=== PATIENT | male | born 1950 | race American Indian/Alaskan Native ===

== ENCOUNTER 2019-01-19 05:06 | Inpatient (IN) ==
[2019-01-13 19:05] LABS: Appearance,Urine CLEAR; Bacteria,Urine 0 /hpf (0); Bilirubin,Urine NEG (NEG); Color,Urine YELLOW; Culture Indicated,Urine NO; Glucose,Urine (UA) NEGATIVE (NEG); Ketones,Urine NEG (NEG); Leukocyte Esterase,Urine NEG /uL (NEG); Mucus,Urine FEW /hpf (0); Nitrate,Urine NEG (NEG); Protein,Urine NEG (NEG); Urine Blood NEG mg/dL (<0.03); Urine RBC 1 /hpf (0-1); Urine Squamous Epithelial Cell 0 /hpf (0-4); Urine WBC 1 /hpf (0-4); Urobilinogen,Urine NEG (NEG)
[2019-01-13 19:54] LABS: Basophils # (Auto) 0.1 K/mcL (0.0-0.3); Basophils % (Auto) 0.8 % (0.0-2.0); Eosinophils # (Auto) 0.5 K/mcL (0.0-0.7); Granulocytes % (Auto) 47.4 % (38.0-78.0); Hematocrit 43.6 % (41.0-55.0); Hemoglobin 14.8 g/dL (13.5-16.5); Lymphocytes # (Auto) 2.2 K/mcL (1.5-4.8); Lymphocytes % (Auto) 33.5 % (15.5-49.0); Mean Cell Volume 90.4 fL (80.0-100.0); Mean Corpuscular HGB Conc 33.9 g/dL (31.0-36.0); Monocytes # (Auto) 0.7 K/mcL (0.1-0.9); Monocytes % (Auto) 10.3 % (1.0-12.0); Platelet Count 162 K/mcL (140-440); RBC 4.82 M/mcL (4.50-5.90); Red Cell Distribution Width 13.4 % (11.5-14.5); WBC 6.7 K/mcL (4.5-11.0)
[2019-01-13 20:04] LABS: Blood Urea Nitrogen 18 mg/dl (8-23); Calcium 9.6 mg/dl (8.6-10.4); Carbon Dioxide 27 mmol/L (22-30); Chloride 101 mmol/L (96-108); Glomerular Filtration Rate 93; Glucose 106 mg/dL (70-105)
[2019-01-13 20:31] LABS: Estimated Average Glucose(eAG) 192 mg/dL; Hemoglobin A1C 8.3 % HGB (4.0-6.0)
[~2019-01-19 05:06] MED LIST: IPRATROPIUM/ALBUTEROL 3 ML AMPUL.NEB NEB PRN; SCOPOLAMINE 1 PATCH PATCH TOPICAL PRN
[2019-01-19 05:26] LABS: POC Pro Time 11.5 sec (11.9-14.5)
[2019-01-19] MEDS ORDERED: 0.9 % SODIUM CHLORIDE 9 ML, KETOROLAC 30 MG, ROPIVACAINE HCL/PF 49.5 ML, EPINEPHrine 0.... IJ SCH (06:00)
[2019-01-19] MEDS ORDERED: CELECOXIB 200 MG CAPSULE PO SCH (06:00)
[2019-01-19] MEDS ORDERED: oxyCODONE 10 MG TAB.ER.12H PO SCH (06:00)
[2019-01-19] MEDS ORDERED: PREGABALIN 75 MG CAPSULE PO SCH (06:00)
[2019-01-19] MEDS ORDERED: ceFAZolin 2 GM in DEXTROSE 5% IN WATER 50 ML IV SCH (06:00)
[2019-01-19] MEDS ORDERED: TRANEXAMIC ACID 1,000 MG/10 ML VIAL IV ONE (07:50)
[2019-01-19] MEDS ORDERED: PROPOFOL 200 MG/20 ML VIAL IV ONE (07:50)
[2019-01-19] MEDS ORDERED: GLYCOPYRROLATE 0.2 MG/ML VIAL IV ONE (07:50)
[2019-01-19] MEDS ORDERED: ONDANSETRON 4 MG/2 ML VIAL IV ONE (07:50)
[2019-01-19] MEDS ORDERED: KETOROLAC 30 MG/ML VIAL IV ONE (07:50)
[2019-01-19] MEDS ORDERED: MIDAZOLAM 2 MG/2 ML VIAL IV ONE (07:50)
[2019-01-19] MEDS ORDERED: KETAMINE 100 MG/ML ML IV ONE (07:50)
[2019-01-19] MEDS ORDERED: DEXAMETHASONE 10 MG/ML VIAL IV ONE (07:50)
[2019-01-19] MEDS ORDERED: LIDOCAINE HCL/PF 100 MG/5 ML SYRINGE IV ONE (07:50)
[2019-01-19] MEDS ORDERED: PHENYLEPHRINE 10 MG/ML VIAL IV ONE (07:50)
[2019-01-19] MEDS ORDERED: fentaNYL 100 MCG/2 ML VIAL IV ONE (07:50)
[2019-01-19] MEDS ORDERED: LACTATED RINGERS 250 ML IV PRN (09:15)
[2019-01-19] MEDS ORDERED: LABETALOL 5 MG/ML ML IV PRN (09:15)
[2019-01-19] MEDS ORDERED: ACETAMINOPHEN 1,000 MG/100 ML BOTTLE IV ONE (09:15)
[2019-01-19] MEDS ORDERED: ONDANSETRON 4 MG/2 ML VIAL IV PRN ×2 (09:15→09:20)
[2019-01-19] MEDS ORDERED: fentaNYL 100 MCG/2 ML VIAL IV PRN (09:15)
[2019-01-19] MEDS ORDERED: IPRATROPIUM/ALBUTEROL 3 ML AMPUL.NEB NEB PRN (09:15)
[2019-01-19] MEDS ORDERED: FLUMAZENIL 0.1 MG/ML ML IV PRN (09:15)
[2019-01-19] MEDS ORDERED: LACTATED RINGERS 1,000 ML IV SCH (09:15)
[2019-01-19] MEDS ORDERED: METOPROLOL TARTRATE 5 MG/5 ML VIAL IV PRN (09:15)
[2019-01-19] MEDS ORDERED: BENZOCAINE/MENTHOL 1 LOZENGE PO PRN ×2 (09:15→09:20)
[2019-01-19] MEDS ORDERED: METHOCARBAMOL 1,000 MG/10 ML VIAL IV PRN (09:15)
[2019-01-19] MEDS ORDERED: NALOXONE HCL 0.4 MG/ML VIAL IV PRN (09:15)
--- NOTE | 2019-01-19 09:19 | Brief Operative Note ---
Date of procedure: 01/19/19 Pre-op diagnosis: Right knee DJD Post-op diagnosis: same Procedure: Right robotic assisted total knee arthroplasty Grafts/Implants: Yes ([place] Triathlon CR 5 femur, 5 tibia, 10mm insert, 36 patella) Anesthesia: spinal, GLMA Findings: arthritis Complications: none Surgeon: González Parrish Support Services Coordinator: Salazar Rangel Estimated blood loss (cc): 30 Specimens Removed/Pathology: none sent Condition: stable Disposition: PACU
[2019-01-19] MEDS ORDERED: BISACODYL 10 MG SUPP.RECT PR PRN (09:20)
[2019-01-19] MEDS ORDERED: HYDROmorphone 2 MG/ML VIAL IV PRN (09:20)
[2019-01-19] MEDS ORDERED: POLYETHYLENE GLYCOL 3350 17 GM PACKET PO PRN (09:20)
[2019-01-19] MEDS ORDERED: MAGNESIUM HYDROXIDE 30 ML ORAL.SUSP PO PRN (09:20)
[2019-01-19] MEDS ORDERED: FLEETS ADULT ENEMA PR PRN (09:20)
[2019-01-19] MEDS ORDERED: TRANEXAMIC ACID 1,000 MG/10 ML VIAL IV SCH (09:20)
[2019-01-19] MEDS ORDERED: Mometasone/Formoterol [Dulera 200 Mcg/5 Mcg Inhaler] INH PRN (09:23)
[2019-01-19] MEDS ORDERED: TIOTROPIUM BROMIDE 18 MCG INHALANT INH PRN (09:23)
[2019-01-19] MEDS ORDERED: DEXTROSE 50% 50 ML VIAL IV PRN (09:23)
[2019-01-19] MEDS ORDERED: DEXTROSE 31 GM ORAL.SUSP PO PRN (09:23)
[2019-01-19] MEDS ORDERED: traMADol 50 MG TABLET PO PRN (09:23)
--- NOTE | 2019-01-19 09:52 | Operative Note ---
DATE OF OPERATION: 01/19/2019 PREOPERATIVE DIAGNOSIS: Left knee osteoarthritis. POSTOPERATIVE DIAGNOSIS: Left knee osteoarthritis. PROCEDURE PERFORMED: Left robotic-assisted total knee arthroplasty placing a [place] Triathlon size 5 cruciate retaining femoral component, size 5 tibial baseplate, 10 mm X3 cruciate retaining tibial insert with a 36 mm patellar button. SURGEON: González Parrish M.D. BLACK TOP SPREADER MACHINE OPERATOR: Beau Rangel PA-C. The PA's assistance was required for the safe and efficient completion of the entire case. This provider's expertise and technical skill were required throughout the case. The PA assisted with preoperative coordination, intraoperative retraction, wound closure, dressing and splint application, as well as postoperative documentation and care coordination. ANESTHESIA: Spinal plus general. DRAINS: None. SPECIMENS: Bone cuts which were discarded. BLOOD LOSS: 50 mL. COMPLICATIONS: None. POSTOPERATIVE CONDITION: Stable. INDICATIONS FOR SURGERY: A 68-year-old male with longstanding progressive worsening left knee pain. He had a previous knee arthroscopy and partial meniscectomy. He also had noted at that time advanced osteoarthritis. He did poorly postoperatively and did not respond to injections. FINDINGS AT SURGERY: Full-thickness cartilage loss off the medial compartment. Post-implantation showed good limb alignment, stability, and patellar tracking. PROCEDURE IN DETAIL: The patient had been seen preoperatively. Informed consent had been obtained after discussion of risks and benefits of surgery. Risks including, but not limited to, bleeding, possibly requiring transfusion; infection, possibly requiring implant removal and prolonged IV antibiotics; injury to nerves, blood vessels, and other surrounding structures; anesthetic risks; incomplete or no resolution of symptoms; swelling; stiffness; pain; instability; DVT and pulmonary embolus risks; and the possibility of needing further revision joint surgery. Patient understood and wished to proceed. Correct operative site was marked in preoperative holding, and patient was taken to the operating room and general anesthesia was induced. The left lower extremity was then prepped and draped in normal sterile fashion, and a timeout was performed verifying patient name, operative site, and plan. Ioban was placed over all skin surfaces and an Esmarch was used to exsanguinate the extremity, and tourniquet was inflated to 300 mmHg. A midline incision was made with a scalpel through skin and subcutaneous tissue, then IrriSept was irrigated and a medial parapatellar arthrotomy was made, and then a subperiosteal exposure was done of the anterior medial tibia. Anterior horns of the menisci were removed, as well as retropatellar fat pad. ACL was transected. We then did a resection of the patella freehand, premeasuring thickness and then placing a cut protector after. We then placed our femoral and tibial checkpoints, and then a scalpel was used to make two stab incisions over the femur and two over the tibia and bicortical pins placed. The arrays were connected. The green probe was used to identify medial and lateral malleoli and double-checks were made with the green probe of the femoral and tibial check points. Blue probe was then used to do our mapping. A rongeur was used to remove osteophytes. We then used the spoons to check our flexion-extension gaps and made adjustments to get as close to 17 mm gaps on all four numbers as possible. Once this was completed, we then used the robotic arm to make our bone cuts. The tibia was prepared with the boss reamer and keel punch and externally rotated as bone coverage would allow. A keeled tibial trial was placed, and the femur was elevated. Curved osteotome and curet were used to remove posterior osteophytes. Femoral trial was then impacted and pinned into place. This was placed flush along the lateral cortex of the femur and then peg holes were drilled. A 10 insert trial was placed and then the knee was taken into extension. We then prepared the patella medializing maximally and sized this to a 36 patella. We then checked the patellar tracking and it was stable. We then removed trial implants. Definitive implants were opened while the joint was irrigated with IrriSept. After waiting a minute, we pulse lavaged with saline. Antibiotic cement was mixed and then the cancellous bone surfaces were dried with the CO2 gun. We then cemented the tibia, followed by the femur. Excess cement was removed, and the trial insert was placed, and the knee was taken into extension. The patella was then cemented. After excess cement was removed, we filled the joint with IrriSept. The tibial and femoral check points were removed. The extension was checked and then we removed our arrays and our pins. We injected pain cocktail in the pericapsular and subcutaneous tissues. Once cement had fully hardened, we flexed the knee up. We removed the insert trial, injected pain cocktail in the posteromedial capsule. We then opened a 10 mm X3 CR insert, and this was carefully impacted and verified to be fully seated. The knee was then placed in extension and filled with IrriSept. After a minute it was copiously pulse lavaged with saline. We then flexed the knee to 45 degrees of flexion. A #2 FiberWire [id number]-ctbbn was used around the superior quadrant of the patella, #1 Vicryl [id number] around the inferior quadrant. Running #1 Vicryl was used for patellar tendon and quad tendon. Final IrriSept irrigation was done, after a minute final pulse lavage, and then 2-0 Monocryl was used for subcutaneous and jesus for skin. Xeroform and sterile dressing were applied. Tourniquet was released. The patient was awakened, extubated, and transferred to recovery in stable condition. BJLuis Miguel:rosaura Job ID: [id number] Doc ID: [id number] González Parrish MD
--- NOTE | 2019-01-19 10:16 | XRay Report ---
CLINICAL INFORMATION: Post-op total knee COMPARISON: None. FINDINGS: Total knee prostheses is anatomically aligned. No osseous normality. Periarticular soft tissue swelling seen in the expected IMPRESSION: Negative Interpreted and Authenticated by: Idris Foy 01/19/19
[2019-01-19] MEDS: 0.9 % SODIUM CHLORIDE 1,000 ML IV SCH ×2 (11:37→22:20)
[2019-01-19] MEDS: INSULIN LISPRO 1 UNIT/0.01 ML UNIT SQ SCH ×3 (11:48→20:41)
[2019-01-19] MEDS: 0.9 % SODIUM CHLORIDE 10 ML SYRINGE IV SCH ×2 (13:05→21:17)
[2019-01-19] MEDS: ceFAZolin 1 GM VIAL IV SCH ×2 (15:47→22:46)
[2019-01-19] MEDS: metFORMIN 500 MG TABLET PO SCH (17:18)
[2019-01-19] MEDS: HYDROcodone/APAP 10/325MG TABLET PO PRN (20:41)
[2019-01-19] MEDS: ASPIRIN 81 MG TAB.CHEW PO SCH (20:41)
[2019-01-19] MEDS: DOCUSATE SODIUM 100 MG CAPSULE PO SCH (20:41)
[2019-01-19] MEDS ORDERED: SENNOSIDES 1 TABLET PO SCH (21:00)
[2019-01-20] MEDS: HYDROcodone/APAP 10/325MG TABLET PO PRN ×2 (02:07→05:38)
[2019-01-20] MEDS: 0.9 % SODIUM CHLORIDE 10 ML SYRINGE IV SCH (05:09)
[2019-01-20] MEDS: 0.9 % SODIUM CHLORIDE 1,000 ML IV SCH (05:58)
[2019-01-20] MEDS: INSULIN LISPRO 1 UNIT/0.01 ML UNIT SQ SCH ×2 (07:45→11:34)
[2019-01-20] MEDS: metFORMIN 500 MG TABLET PO SCH (07:54)
--- NOTE | 2019-01-20 08:05 | Discharge Summary ---
Providers - Providers Patient information: Note initiated : 01/20/19 at 8:02 am Service Date, if different from initiated Date: [] Patient: Usama Sims 68 y/o M admitted on 01/19/19 for Left Total Knee Arthroplasty [place]. Chief Complaint: [] Discharge date: 01/20/19 Hospitalization Discharge diagnosis: s/p total knee arthroplasty Exam - Exam Clean and dry: Yes Ortho Discharge - TKA - Patient Instructions Diet: Consistent Carbohydrate Activity: weight bearing as tolerated Total Knee Protocol: For Total Knee: Start ROM [place] with stationary bike or rocking chair. Work on gaining full extension of knee. Posterior dislocation precautions provided. Hip abductor strengthening and gait training instructions provided. Apply Cryocuff as instructed. Dressing Care: Aquacel Ag - leave on for 5 days - Follow Up Plan Follow Up Appointments: Salazar Rangel PA-C [Physician Beam Press Operator] - Disposition: Home, Self-Care Prognosis: Good Rehab Potential: Good - Orders For Discharge Prescriptions: Aspirin [Adult Low Dose Aspirin EC] 81 mg PO BID #30 tablet.dr Transmission Status: Pending to [facility] Docusate Sodium [Colace] 100 mg PO BID #60 cap Transmission Status: Pending to [facility] HYDROcodone/ACETAMINOPHEN [Hydrocodone-Acetamin 10-325 mg] 1 - 2 tab PO Q4-6HP PRN #80 tab PRN Reason: Pain Prescription Printed Additional Discharge Orders: Physical Therapy at Discharge - General Location: None Selected Walker Location: None Selected Pending Studies Resuscitation Status Full Code Diet Consistent Carbohydrate Diet Start ThuJan 19 921 Hydrocodone Bitart/Acetaminophen ([place] 10/325mg) 0 tab PO Q4HP PRN PRN Reason: PAIN LEVEL 3-6 Last Admin: 01/20/19 05:38 Dose: 1 tab Documented by: Admin: 01/20/19 02:07 Dose: 1 tab Documented by: Admin: 01/19/19 20:41 Dose: 1 tab Documented by: TYLER Aspirin (Aspirin) 81 mg PO BID [facility] Last Admin: 01/19/19 20:41 Dose: 81 mg Documented by: TYLER Diagnostic Test (Pha) (Accu-Chek) 1 each FS ACHS [facility] Last Admin: 01/20/19 07:45 Dose: 1 each Documented by: [email or web address] Admin: 01/19/19 20:40 Dose: 1 each Documented by: Admin: 01/19/19 17:08 Dose: 1 each Documented by: Admin: 01/19/19 11:40 Dose: 1 each Documented by: DEVORA Docusate Sodium (Colace) 100 mg PO BID [facility] Last Admin: 01/19/19 20:41 Dose: 100 mg Documented by: TYLER Sodium Chloride (Sodium Chloride 0.9%) 1,000 mls @ 100 mls/hr IV .Q10H [facility] Last Admin: 01/20/19 05:58 Dose: Not Given Documented by: Infusion: 01/20/19 05:09 Dose: 0 mls/hr Documented by: Admin: 01/19/19 22:20 Dose: 100 mls/hr Documented by: Infusion: 01/19/19 21:37 Dose: 100 mls/hr Documented by: Admin: 01/19/19 11:37 Dose: 100 mls/hr Documented by: DEVOAR Insulin Human Lispro (Humalog) 0 unit SQ ACHS [facility]; Protocol Last Admin: 01/20/19 07:45 Dose: 2 units Documented by: Admin: 01/19/19 20:41 Dose: 6 units Documented by: Admin: 01/19/19 17:09 Dose: 12 units Documented by: Admin: 01/19/19 11:48 Dose: 6 units Documented by: DEVORA Metformin HCl (Glucophage) 1,000 mg PO BIDCC [facility] Last Admin: 01/20/19 07:54 Dose: 1,000 mg Documented by: Admin: 01/19/19 17:18 Dose: 1,000 mg Documented by: DEVORA Senna (Senokot) 2 tab PO HS [facility] Last Admin: 01/19/19 20:41 Dose: 2 tab Documented by: TYLER Sodium Chloride (Saline Flush) 10 ml IV Q8 [facility] Last Admin: 01/20/19 05:09 Dose: 10 ml Documented by: Admin: 01/19/19 21:17 Dose: Not Given Documented by: Admin: 01/19/19 13:05 Dose: Not Given Documented by: DEVORA Shift Summary 01/20/19 03:01 Shift Summary by Shea Hampton Pt is A&Ox4, a little forgetful/poor historian. VSS on RA (HR was running a bit high during day at times, but has been in 70s-80s this shift). Up w/SBA, FWW, & GB. Ambulated in hallway x1. Denies numbness/tingling. Denies nausea. Voids per urinal. (Most recent void @ 0210 was 700 cc w/PVR of 354cc). IV to left wrist, SL. IV to RFA w/NS @ 100 ml/hr. Pt received Atqasuk 10 mg (1 tab) x2 for knee pain. Dressing to left knee with very scant amount of sanguineous shadow drainage. Using cryocuff at times. HS accucheck was 238 & pt got 6 units SSI coverage. Pt's significant other reportedly got Rx pain meds filled yesterday, but pt is wondering about where to get a walker since it is Thanksgiving. Pt is also requesting that a prescription for stool softener be sent to pharmacy (uses both [facility]). Please ask MD/PA about this if possible. Will update with verbal report. Initialized on 01/20/19 03:01 - END OF NOTE
[2019-01-20] MEDS: ASPIRIN 81 MG TAB.CHEW PO SCH (08:18)
[2019-01-20] MEDS: DOCUSATE SODIUM 100 MG CAPSULE PO SCH (08:18)
[2019-01-20] MEDS ORDERED: INSULIN GLARGINE, HUMAN 1 UNIT/0.01 ML SQ SCH (09:00)
[2019-01-20] MEDS ORDERED: ROPIVACAINE HCL/PF 20 ML VIAL IJ ONE (12:29)
== END 2019-01-20 12:30 | disposition home or self-care (01) | DRG 470 ==
LOC: MEDSUR 05:06
PROVIDERS: ADMIT Orthopaedic Surgery; ATTEND Orthopaedic Surgery